=== PATIENT | female | born 1980 | race Hispanic/Latino ===

== ENCOUNTER 2023-04-12 14:05 | Emergency (ER) | payer BC, OTHER ==
[~2023-04-12] VITALS: Ht 157.5 cm; Wt 76.2 kg
[2023-04-12 14:16] VITALS: BP 111/67; PULSE 70; RESP 16; O2SAT 100
== END 2023-04-12 17:41 | disposition left against medical advice (07) ==
LOC: EDH 14:05
DX: S60.311A Abrasion of right thumb, initial encounter (principal); L08.9 Local infection of the skin and subcutaneous tissue, unspecified; Z90.89 Acquired absence of other organs; X58.XXXA Exposure to other specified factors, initial encounter; Y93.89 Activity, other specified; Y92.89 Other specified places as the place of occurrence of the external cause; Y99.8 Other external cause status
CPT/HCPCS: 99281